=== PATIENT | male | born 1970 | race Caucasian/White ===

== ENCOUNTER 2017-09-18 15:06 | Emergency (ER) | payer OTHER, MEDICARE ==
[2017-09-18] MEDS: KETOROLAC 60 MG/2 ML INJ. IM (16:40)
== END 2017-09-18 17:01 | disposition home or self-care (01) ==
LOC: ER 15:06
DX: S20.212A Contusion of left front wall of thorax, initial encounter (principal); S80.02XA Contusion of left knee, initial encounter; V43.52XA Car driver injured in collision with other type car in traffic accident, initial encounter; Y93.I9 Activity, other involving external motion; Y92.410 Unspecified street and highway as the place of occurrence of the external cause; Y99.8 Other external cause status
CPT/HCPCS: 71046; 73562; 96372; 99284-25; J1885